=== PATIENT | female | born 1955 | race Caucasian/White ===

== ENCOUNTER 2017-07-24 13:15 | Observation (INO) | payer BC ==
[2017-07-24] MEDS ORDERED: SODIUM CHLORIDE 0.9% 1,000 ML IV STA ×2 (15:55)
[2017-07-24] MEDS ORDERED: LORazepam 2 MG/ML INJ IV STA (15:55)
[2017-07-24] MEDS ORDERED: MECLIZINE 12.5 MG TAB PO STA (15:55)
[2017-07-24] MEDS ORDERED: ONDANSETRON 4 MG/2 ML VIAL IVP STA (15:56)
--- NOTE | 2017-07-24 15:58 | ED ---
General Adult HPI - General Chief complaint: Dizziness Stated complaint: Dizzy Time Seen by Provider: 07/24/17 15:51 Source: patient, RN notes reviewed, old records reviewed Mode of arrival: wheelchair Limitations: no limitations - History of Present Illness Initial comments: 61-year-old female with no significant past medical history presents for severe nausea and dizziness. Patient is unable to find a position of comfort. She has sensation room is spinning. Patient was diagnosed with an ear infection, her tympanic membrane on the right ruptured, she was started on antibiotics on Monday for this. Dizziness began on Monday, progressed to being severe, unable to walk straight. She's had profound nausea vomiting. Doesn't have episodes of vomiting and dry heaving today. Denies any chest pain or shortness of breath. Denies headache. Denies focal weakness. - Related Data Home Medications Medication Instructions Recorded Confirmed No Known Home Medications [No 07/24/17 07/24/17 Known Home Medications] Allergies Allergy/AdvReac Type Severity Reaction Status Date / Time Penicillins Allergy Rash/Hives Verified 07/24/17 15:46 Sulfa (Sulfonamide Allergy Rash/Hives Verified 07/24/17 15:46 Antibiotics) Review of Systems ROS Statement: Those systems with pertinent positive or pertinent negative responses have been documented in the HPI. ROS Other: All systems not noted in ROS Statement are negative. Past Medical History Past Medical History: No Reported History History of Any Multi-Drug Resistant Organisms: None Reported Past Surgical History: Section Additional Past Surgical History / Comment(s): breast biopsies Past Psychological History: No Psychological Hx Reported Smoking Status: Never smoker Past Alcohol Use History: None Reported Past Drug Use History: None Reported General Exam Limitations: no limitations General appearance: alert, in no apparent distress Head exam: Present: atraumatic, normocephalic Eye exam: Present: normal appearance, PERRL, EOMI ENT exam: Absent: TM's normal bilaterally (Right tympanic membrane is erythematous) Neck exam: Present: normal inspection. Absent: tenderness, meningismus Respiratory exam: Present: normal lung sounds bilaterally. Absent: respiratory distress Cardiovascular Exam: Present: regular rate, normal rhythm GI/Abdominal exam: Present: soft. Absent: distended, tenderness Extremities exam: Present: normal inspection, normal capillary refill. Absent: pedal edema Neurological exam: Present: alert, oriented X3, CN II-XII intact, abnormal gait. Absent: motor sensory deficit, other (Ataxia) Psychiatric exam: Present: normal affect, normal mood Skin exam: Present: warm, intact, diaphoretic Course Vital Signs 07/24/17 07/24/17 07/24/17 13:58 15:43 16:18 Temperature 98.7 F 98 F 97.7 F Pulse Rate 100 104 H 97 Respiratory 18 20 18 Rate Blood Pressure 132/82 129/89 133/75 O2 Sat by Pulse 97 100 98 Oximetry 07/24/17 17:35 Temperature Pulse Rate 91 Respiratory 18 Rate Blood Pressure 113/70 O2 Sat by Pulse 95 Oximetry Medical Decision Making - Medical Decision Making 61-year-old female being treated as an outpatient for a right otitis media presents with severe vertigo and nausea and vomiting. Patient is in moderate distress and presentation. She has profound nausea vomiting. Diaphoretic and tachycardic. Laboratory studies are obtained, white blood cell count normal, hemoglobin stable 15.2, CO2 of 20 representing mild acidosis likely secondary to lactic acidosis of 2.8. Creatinine is normal. Patient is given IV hydration , Ativan, meclizine, Zofran. On reevaluation, patient has persistent symptoms of vertigo with nausea and vomiting. She will be placed in observation for IV hydration, and symptomatically treatment of likely labyrinthitis, with vertigo, and nausea vomiting. - Lab Data Result diagrams: 07/24/17 16:09 07/24/17 16:09 Lab Results 07/24/17 07/24/17 07/24/17 Range/Units 16:09 16:09 16:09 WBC 8.5 (3.8-10.6) k/uL RBC 5.27 (3.80-5.40) m/uL Hgb 15.2 (11.4-16.0) gm/dL Hct 46.9 H (34.0-46.0) % MCV 89.0 (80.0-100.0) fL MCH 28.9 (25.0-35.0) pg MCHC 32.4 (31.0-37.0) g/dL RDW 13.2 (11.5-15.5) % Plt Count 293 (150-450) k/uL Neutrophils % 79 % Lymphocytes % 14 % Monocytes % 5 % Eosinophils % 0 % Basophils % 0 % Neutrophils # 6.8 (1.3-7.7) k/uL Lymphocytes # 1.2 (1.0-4.8) k/uL Monocytes # 0.5 (0-1.0) k/uL Eosinophils # 0.0 (0-0.7) k/uL Basophils # 0.0 (0-0.2) k/uL PT (9.0-12.0) sec INR (<1.2) Sodium 142 (137-145) mmol/L Potassium 4.1 (3.5-5.1) mmol/L Chloride 107 (98-107) mmol/L Carbon Dioxide 20 L (22-30) mmol/L Anion Gap 15 mmol/L BUN 18 H (7-17) mg/dL Creatinine 0.74 (0.52-1.04) mg/dL Est GFR (MDRD) Af Amer >60 (>60 ml/min/1.73 sqM) Est GFR (MDRD) Non-Af >60 (>60 ml/min/1.73 sqM) Glucose 113 H (74-99) mg/dL Plasma Lactic Acid Michael 2.8 H* (0.7-2.0) mmol/L Calcium 10.2 (8.4-10.2) mg/dL Total Bilirubin 0.7 (0.2-1.3) mg/dL AST 27 (14-36) U/L ALT 24 (9-52) U/L Alkaline Phosphatase 108 (38-126) U/L Total Protein 7.5 (6.3-8.2) g/dL Albumin 4.4 (3.5-5.0) g/dL 07/24/17 Range/Units 16:09 WBC (3.8-10.6) k/uL RBC (3.80-5.40) m/uL Hgb (11.4-16.0) gm/dL Hct (34.0-46.0) % MCV (80.0-100.0) fL MCH (25.0-35.0) pg MCHC (31.0-37.0) g/dL RDW (11.5-15.5) % Plt Count (150-450) k/uL Neutrophils % % Lymphocytes % % Monocytes % % Eosinophils % % Basophils % % Neutrophils # (1.3-7.7) k/uL Lymphocytes # (1.0-4.8) k/uL Monocytes # (0-1.0) k/uL Eosinophils # (0-0.7) k/uL Basophils # (0-0.2) k/uL PT 10.1 (9.0-12.0) sec INR 1.0 (<1.2) Sodium (137-145) mmol/L Potassium (3.5-5.1) mmol/L Chloride (98-107) mmol/L Carbon Dioxide (22-30) mmol/L Anion Gap mmol/L BUN (7-17) mg/dL Creatinine (0.52-1.04) mg/dL Est GFR (MDRD) Af Amer (>60 ml/min/1.73 sqM) Est GFR (MDRD) Non-Af (>60 ml/min/1.73 sqM) Glucose (74-99) mg/dL Plasma Lactic Acid Michael (0.7-2.0) mmol/L Calcium (8.4-10.2) mg/dL Total Bilirubin (0.2-1.3) mg/dL AST (14-36) U/L ALT (9-52) U/L Alkaline Phosphatase (38-126) U/L Total Protein (6.3-8.2) g/dL Albumin (3.5-5.0) g/dL Disposition Clinical Impression: Acute laryngitis, Dehydration Disposition: ADMITTED IP TO THIS [facility] Condition: Stable Referrals: João Bello DO [Doctor of Osteopathic Medicine] - 1-2 days Decision to Admit Reason: Admit from EC Decision Date: 07/24/17 Decision Time: 17:19
[2017-07-24 16:19] LABS: Basophils % (A) 0 %; Eosinophils % (A) 0 %; HCT 46.9 % (34.0-46.0); HGB 15.2 gm/dL (11.4-16.0); Lymphocytes # (A) 1.2 k/uL (1.0-4.8); Lymphocytes % (A) 14 %; MCH 28.9 pg (25.0-35.0); MCHC 32.4 g/dL (31.0-37.0); Mean Platelet Volume 6.8; Monocytes # (A) 0.5 k/uL (0-1.0); Monocytes % (A) 5 %; Neutrophils # (A) 6.8 k/uL (1.3-7.7); Neutrophils % (A) 79 %; Platelet Count 293 k/uL (150-450); RBC 5.27 m/uL (3.80-5.40); RDW 13.2 % (11.5-15.5); WBC 8.5 k/uL (3.8-10.6)
[2017-07-24 16:32] LABS: ALT 24 U/L (9-52); AST 27 U/L (14-36); Albumin 4.4 g/dL (3.5-5.0); Alkaline Phosphatase 108 U/L (38-126); Anion Gap 15 mmol/L; Blood Urea Nitrogen 18 mg/dL (7-17); Calcium 10.2 mg/dL (8.4-10.2); Carbon Dioxide 20 mmol/L (22-30); Chloride 107 mmol/L (98-107); Glucose 113 mg/dL (74-99); Potassium 4.1 mmol/L (3.5-5.1); Sodium 142 mmol/L (137-145); Total Bilirubin 0.7 mg/dL (0.2-1.3); Total Protein 7.5 g/dL (6.3-8.2)
[2017-07-24 16:36] LABS: Prothrombin Time 10.1 sec (9.0-12.0)
[2017-07-24] MEDS ORDERED: LORazepam 2 MG/ML INJ IV PRN (18:12)
[2017-07-24] MEDS ORDERED: ONDANSETRON 4 MG/2 ML VIAL IVP PRN (18:12)
[2017-07-24] MEDS ORDERED: ACETAMINOPHEN TAB 325 MG TAB PO PRN (18:12)
[2017-07-24] MEDS ORDERED: NALOXONE 0.4 MG/ML 1 ML VIAL IV PRN (18:12)
[2017-07-24] MEDS ORDERED: MECLIZINE 25 MG TAB PO PRN (18:13)
--- NOTE | 2017-07-25 08:12 | P.HPIM ---
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 It was to the point where she could not ambulate properly and felt disoriented. No illicit substance abuse is noted. She was evaluated initially in the emergency room and because of her symptomatology was kept for observation. She states no ear pain. Appetite is still not coming back to normal because of nausea. She has not ambulatory completely as of yet. Initial workup seems unremarkable. Patient has been tolerating Zofran and meclizine. Review of Systems Constitutional: Denies chills, Denies fever Eyes: denies blurred vision, denies pain Ears, nose, mouth and throat: Denies headache, Denies sore throat Cardiovascular: Denies chest pain, Denies shortness of breath Respiratory: Denies cough Gastrointestinal: Denies abdominal pain, Denies diarrhea, Denies nausea, Denies vomiting Genitourinary: Denies dysuria, Denies hematuria Musculoskeletal: Denies myalgias Past Medical History Past Medical History: No Reported History History of Any Multi-Drug Resistant Organisms: None Reported Past Surgical History: Section Additional Past Surgical History / Comment(s): breast biopsies Past Anesthesia/Blood Transfusion Reactions: Postoperative Nausea & Vomiting ( PONV) Past Psychological History: No Psychological Hx Reported Smoking Status: Never smoker Past Alcohol Use History: None Reported Past Drug Use History: None Reported - Past Family History Mother Family Medical History: Cancer, Hypertension Medications and Allergies Home Medications Medication Instructions Recorded Confirmed Type No Known Home Medications [No 07/24/17 07/24/17 History Known Home Medications] Allergies Allergy/AdvReac Type Severity Reaction Status Date / Time Penicillins Allergy Rash/Hives Verified 07/24/17 15:46 Sulfa (Sulfonamide Allergy Rash/Hives Verified 07/24/17 15:46 Antibiotics) Physical Exam Vitals: Vital Signs Temp Pulse Pulse Resp BP BP Pulse Ox 07/25/17 07:00 97.9 F 79 18 130/87 96 07/24/17 22:46 97.5 F L 74 16 110/62 98 07/24/17 19:15 98.0 F 77 16 117/71 99 07/24/17 18:54 98.1 F 07/24/17 18:48 75 18 120/67 95 07/24/17 17:35 91 18 113/70 95 07/24/17 16:18 97.7 F 97 18 133/75 98 07/24/17 15:43 98 F 104 H 20 129/89 100 07/24/17 13:58 98.7 F 100 18 132/82 97 Intake and Output 07/24/17 07/25/17 07/25/17 22:59 06:59 14:59 Other: # Voids 1 1 Results CBC & Chem 7: 07/24/17 16:09 07/24/17 16:09 Labs: Abnormal Lab Results - Last 24 Hours (Table) 07/24/17 07/24/17 07/24/17 Range/Units 16:09 16:09 16:09 Hct 46.9 H (34.0-46.0) % Carbon Dioxide 20 L (22-30) mmol/L BUN 18 H (7-17) mg/dL Glucose 113 H (74-99) mg/dL Plasma Lactic Acid Michael 2.8 H* (0.7-2.0) mmol/L Thrombosis Risk Factor Assmnt - Choose All That Apply Any of the Below Risk Factors Present?: Yes Each Factor Represents 1 point: Age 41-60 years Other Risk Factors: No Other congenital or acquired thrombophilia - If yes, enter type in comment: No Thrombosis Risk Factor Assessment Total Risk Factor Score: 1 Thrombosis Risk Factor Assessment Level: Low Risk Assessment and Plan (1) Labyrinthitis Current Visit: Yes Status: Acute Code(s): H83.09 - LABYRINTHITIS, UNSPECIFIED EAR SNOMED Code(s): 34359519 (2) Vertigo Current Visit: Yes Status: Acute Code(s): R42 - DIZZINESS AND GIDDINESS SNOMED Code(s): 136722259 (3) Dehydration Current Visit: Yes Status: Acute Code(s): E86.0 - DEHYDRATION SNOMED Code( s): 89864421 Plan: Continue hydration. We'll treat symptomatically at this ti secondary opinion. Question need for MRI. However, she is slowly Improving. We will continue follow closely. At this time, she is a full code. Time with Patient: Less than 30
[2017-07-25] MEDS ORDERED: PROCHLORPERAZINE 10 MG TAB PO PRN (13:22)
--- NOTE | 2017-07-25 22:37 | CONS ---
CONSULTATION REASON FOR CONSULTATION: Vertigo. HISTORY: This is a 61-year-old white female who a little over a week ago had acute otitis media on the right with perforation. She no longer has any ear pain or decreased hearing. She was improving from this and then 3 days ago started having some nausea. She had been started on Levaquin last Monday and took this over the weekend, but she felt this was making her nausea worse and vertigo. She had only mild spinning type vertigo the 1st 2 days, but then yesterday became so bad with nausea and vomiting. She came to the hospital for evaluation. She had a hard time moving without having spinning. She was treated with meclizine and Zofran and has improved quite markedly. She has been able to walk up to the bathroom and a little bit in the halls now. She states that with quick head movements, she still has some feeling off-balance, but no longer any nausea. She has not been on any antibiotics since the weekend and has had no fever, chills, or headache. She has had no focal neurologic symptoms. She has not had difficulties like this previously. The right ear is not bothering her at this point other than a slight muffled hearing. PAST MEDICAL HISTORY: Positive for osteoporosis and skin cancer. PAST SURGICAL HISTORY: Breast biopsy, section, tubal ligation, skin cancer surgeries. MEDICATIONS: At home none. ALLERGIES: TO PENICILLIN AND SULFA. REVIEW OF SYSTEMS: Negative other than as above. PHYSICAL EXAM: Vital signs are unremarkable. Afebrile with stable vital signs. In general, this is a well-developed adult white female in no acute distress. She is alert and oriented x3 and conversant. HEENT: Head normocephalic and atraumatic. Ears on the left there is moderate cerumen. Tympanic membrane is unremarkable mobile on the right. The canals clear. Tympanic membrane has a minimal speck of old blood, but tympanic membrane is healed. There appears to be a slight effusion with decreased mobility with pneumatic otoscopy with no erythema. No mastoid or tragal tenderness. The nose shows no drainage or obstruction. Mouth shows no abnormal masses or lesions. NECK: Supple without adenopathy or tenderness. The quick head movements cause some mild spinning type sensation, but no nystagmus is noted. Cranial nerves 2-12 are grossly intact. ASSESSMENT: 1. Vertigo, probable acute labyrinthitis. 2. History of recent right acute otitis media with perforation with mild serous effusion. PLAN: The patient has improved actually quite markedly already with just supportive care. She has had no actual active medications such as antibiotics or steroids and she is still improving and therefore would hold off on any further antibiotics as she has no active infection apparent and she felt actually that the Levaquin may have increased her symptoms. Steroids may be helpful however she is improving on her own and therefore we will hold off on these presently. Would recommend further ambulation as much as possible without risk of falls. If she continues to improve, likely will be able to discharge tomorrow on supportive medications such as meclizine and Zofran with the Zofran as needed. Meclizine initially on a regular basis, but wean as soon as possible. She will likely take the reset of the week off of work. If she continues to improve and resolves by the weekend, then she can follow up on an as-needed basis with our office. However, she has any persistent symptoms, she will call and we will see her as an outpatient for audiogram and possibly the ENG. 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 If you have any questions or concerns, please free to contact me. Total time of consultation: 45 minutes, more than half with counseling. Approximately 75%. DRAGAN / MONICA: [id number] /
[2017-07-26 07:35] VITALS: BP 133/73; PULSE 60; RESP 16; TEMP 97.3
--- NOTE | 2017-07-26 08:11 | P.DS ---
Providers Date of admission: 07/24/17 18:13 Attending physician: Ancelmo Fields Consults: 07/25/17 07:24 Consult Physician Routine Consulting Provider: João Bello Consult Reason/Comments: vertigo/labrynthitis Do you want consulting provider notified?: Yes Primary care physician: Ancelmo Fields - Discharge Diagnosis(es) (1) Labyrinthitis Current Visit: Yes Status: Acute (2) Vertigo Current Visit: Yes Status: Acute (3) Dehydration Current Visit: Yes Status: Acute Hospital Course: This is a discharge summary 61-year-old white female essentially admitted for laboratories. She was stabilized and observation. Meclizine didn't resolve her symptoms. She is now stabilized enough to go home. ENT consultation was done. No significant new complaints are otherwise stated. We're not worried about any other overt CVA or mass at this time. She'll be discharged in stable condition follow-up with me as needed or in a week. Patient Condition at Discharge: Stable Plan - Discharge Summary Discharge Rx Participant: No New Discharge Prescriptions: New Meclizine [Antivert] 25 mg PO TID PRN #30 tab PRN Reason: Vertigo Discharge Medication List Meclizine [Antivert] 25 mg PO TID PRN #30 tab 07/26/17 [Rx] Follow up Appointment(s)/Referral(s): João Bello DO [Doctor of Osteopathic Medicine] - 1-2 days Ancelmo Fields MD [Primary Care Provider] - 1 Week Discharge Disposition: HOME SELF-CARE
== END 2017-07-26 10:48 | disposition home or self-care (01) ==
LOC: EC 13:15 → 4MS4W 18:13
PROVIDERS: ADMIT Family Medicine; ATTEND Family Medicine
DX: H83.09 Labyrinthitis, unspecified ear (principal); E86.0 Dehydration; E87.2 Acidosis; R61 Generalized hyperhidrosis; R00.0 Tachycardia, unspecified; Z85.828 Personal history of other malignant neoplasm of skin; Z88.0 Allergy status to penicillin; Z88.1 Allergy status to other antibiotic agents; Z82.49 Family history of ischemic heart disease and other diseases of the circulatory system; Z80.9 Family history of malignant neoplasm, unspecified
CPT/HCPCS: 96374 ×2; 96375 ×2; 96361 ×6; 99285; 36415; 93005; 80053; 83605; 85025; 85610; G0378 ×3; S0183; J2060; J2405 ×2

== ENCOUNTER → 2017-08-30 | Outpatient (CLI) | payer BC ==
--- NOTE | 2017-08-31 10:10 | MM ---
Reason for exam: screening (asymptomatic). Last mammogram was performed 12 years and 10 months ago. History: Patient is postmenopausal and has history of other cancer at age 41. Family history of breast cancer in paternal aunt and breast cancer in maternal aunt. Benign stereotactic core biopsy of the left breast, March 31, 2003. Benign stereotactic core biopsy of the right breast, March 31, 2003. Cyst aspiration of the right breast. Core biopsy of the left breast. Core biopsy of the right breast. Excisional biopsy of the right breast. Physical Findings: A clinical breast exam by your physician is recommended on an annual basis and results should be correlated with mammographic findings. MG Screening Mammo w CAD Bilateral CC and MLO view(s) were taken. Prior study comparison: October 04, 2010, mammogram, performed at [facility]. The breast tissue is heterogeneously dense. This may lower the sensitivity of mammography. Finding: There are typically benign dystrophic, round calcifications in both breasts. Previous mammotome biopsy in the right and left breast. There is no discrete abnormality. ASSESSMENT: Benign, BI-RAD 2 RECOMMENDATION: Routine screening mammogram of both breasts in 1 year.
== END | disposition home or self-care (01) ==
LOC: RADMAMWWP 16:35
PROVIDERS: ATTEND Family Medicine
DX: Z12.31 Encounter for screening mammogram for malignant neoplasm of breast (principal)
CPT/HCPCS: 77067

== ENCOUNTER → 2023-04-05 | Outpatient (CLI) | payer MEDICARE, BC ==
--- NOTE | 2023-04-05 09:15 | BD ---
EXAMINATION TYPE: Axial Bone Density DATE OF EXAM: 04/05/2023 CLINICAL HISTORY: 67 years old Female. ICD-10 CODE: [id number] POST ANAM WITHOUT HRT Height: 62.5 Weight: 132 FRAX RISK QUESTIONS: Family History (Parent hip fracture): no History of Fracture in Adulthood: no Secondary Osteoporosis: no RISK FACTORS HISTORY OF: Family History of Osteoporosis: yes, mother Active: yes Diet low in dairy products/other sources of calcium: no Postmenopausal woman: yes Lost more than 2 inches in height since high school: no Frequent falls: no Poor Health: no MEDICATIONS: Additional Medications: yes hbp EXAM MEASUREMENTS: Bone mineral densitometry was performed using the [employer] System. Bone mineral density as measured about the Lumbar spine is: ----- L1-L4(G/cm2): 0.804 T Score Values are as follows: ----- L1: -2.9 ----- L2: -3.5 ----- L3: -3.7 ----- L4: -2.7 ----- L1-L4: -3.1 Z Score Values are as follows: ----- L1: -1.2 ----- L2: -1.8 ----- L3: -1.9 ----- L4: -0.9 ----- L1-L4: -1.4 Bone mineral density has: baseline Bone mineral density about the R hip (g/cm2): 0.561 Bone mineral density about the L hip (g/cm2): 0.509 T Score values are as follows: -----R Neck: -3.9 -----L Neck: -4.1 -----R Total: -3.5 -----L Total: -4.0 Z Score values are as follows: -----R Neck: -2.2 -----L Neck: -2.4 -----R Total: -2.2 -----L Total: -2.6 Bone mineral density baseline FRAX%s: The graph provided illustrates a 29.4% chance for a major osteoporotic fx and a 15.2% chance for the hips probability for fx in 10 years time. IMPRESSION: Osteoporosis (T Score less than -2.5). There is increased fracture risk and therapy is usually indicated based on age. Re-Screen 1-2 years. NOTE: T-SCORE=SD OF THE YOUNG ADULT MEAN.
--- NOTE | 2023-04-06 09:17 | MM ---
Reason for Exam: Screening (asymptomatic). Last mammogram was performed 1 year(s) and 9 month(s) ago. Patient History: Menarche at age 13. Left ovary removed at age 46. Right ovary removed at age 46. Hysterectomy at age 46. Postmenopausal. Other cancer, age 41. Cyst Aspiration on the Right side. Core Biopsy on the Right side. Core Biopsy on the Left side. Excisional Biopsy on the Right side. 03/31/2003, Benign Stereotactic Core Biopsy on the left side. 03/31/2003, Benign Stereotactic Core Biopsy on the right side. Paternal aunt had breast cancer. Maternal aunt had breast cancer. Risk Values: Kiersten 5 year model risk: 1.8%. NCI Lifetime model risk: 6.5%. Prior Study Comparison: 11/04/2004 Bilateral Screening Mammogram, [facility]. 10/04/2010 Screening Mammogram, [facility]. 08/30/2017 Bilateral Screening Mammogram, [facility]. 07/20/2021 Bilateral Screening Mammogram, [facility]. Tissue Density: The breast tissue is heterogeneously dense. This may lower the sensitivity of mammography. Findings: Analyzed By CAD. There is no suspicious group of microcalcifications or new suspicious mass in either breast. Overall Assessment: Benign, BI-RAD 2 Management: Screening Mammogram of both breasts in 1 year. . Patient should continue monthly self-breast exams. A clinical breast exam by your physician is recommended on an annual basis. This exam should not preclude additional follow-up of suspicious palpable abnormalities. Note on Kiersten scores and lifetime risk: 1. A Kiersten score greater than 3% is considered moderate risk. If this is the case, consider specialist referral to assess eligibility for a risk reducing agent. 2. If overall lifetime risk for the development of breast cancer is 20% or higher, the patient may qualify for future screening with alternating mammogram and breast MRI. Electronically signed and approved by: Delvin Alejandro M.D. Radiologis
== END | disposition home or self-care (01) ==
LOC: RADMAMWWP 08:01
PROVIDERS: ATTEND Obstetrics & Gynecology
DX: Z12.31 Encounter for screening mammogram for malignant neoplasm of breast (principal); M81.0 Age-related osteoporosis without current pathological fracture; Z78.0 Asymptomatic menopausal state; Z80.3 Family history of malignant neoplasm of breast
CPT/HCPCS: 77067; 77080